=== PATIENT | female | born 1990 | race Caucasian/White ===

== ENCOUNTER 2020-01-28 05:30 | Outpatient (CLI) | payer OTHER ==
[~2020-01-28] VITALS: Ht 167.6 cm; Wt 118.2 kg
[2020-01-28 05:59] VITALS: BP 111/71
[2020-01-28] MEDS ORDERED: PREN1TAB60 PO (06:26)
== END 2020-01-28 06:52 | disposition home or self-care (01) ==
LOC: LDOP 05:30
PROVIDERS: ATTEND Obstetrics & Gynecology
DX: O26.893 Other specified pregnancy related conditions, third trimester (principal); R10.9 Unspecified abdominal pain; Z3A.39 39 weeks gestation of pregnancy
CPT/HCPCS: 59025

== ENCOUNTER 2020-02-01 21:44 | Inpatient (IN) | payer OTHER ==
[~2020-02-01] VITALS: Ht 167.6 cm; Wt 121.0 kg
[~2020-02-01 21:44] MED LIST: PREN1TAB60 PO
[2020-02-01] MEDS ORDERED: OXYTOCIN 30U/ 0.9% NaCL 500ML 500 ML ONE (22:06)
[2020-02-01] MEDS ORDERED: NEWBORN KIT ONE (22:06)
[2020-02-01] MEDS ORDERED: LACTATED RINGERS 1,000 ML IV SCH (22:10)
[2020-02-01] MEDS ORDERED: D5%-LACTATED RINGERS 1,000 ML IV SCH (22:10)
[2020-02-01] MEDS ORDERED: OXYTOCIN 30U/ 0.9% NaCL 500ML 500 ML IV ONE (22:10)
[2020-02-01] MEDS ORDERED: OXYTOCIN 30U/ 0.9% NaCL 500ML 500 ML IV PRN (22:10)
[2020-02-01] MEDS ORDERED: TERBUTALINE 1 MG/ML, 1ML SQ PRN (22:30)
[2020-02-01] MEDS ORDERED: ONDANSETRON 2MG/ML, 2ML IVPush PRN (22:30)
[2020-02-01] MEDS ORDERED: CALCIUM CARBONATE 500 MG TAB.CHEW PO PRN (22:30)
[2020-02-01] MEDS ORDERED: FENTANYL PF 100 MCG/2ML IVPush PRN (22:30)
[2020-02-01] MEDS ORDERED: TERBUTALINE 1 MG/ML, 1ML IVPush PRN (22:30)
[2020-02-01] MEDS ORDERED: FENTANYL PF 100 MCG/2ML IV PRN (22:30)
[2020-02-01] MEDS ORDERED: LIDOCAINE 1%, 20ML ONE (22:36)
[2020-02-01 22:45] LABS: BASOPHILS # (AUTO) 0.03 x10^3/uL (0-0.1); BASOPHILS % (AUTO) 0 % (0-1); EOSINOPHILS # (AUTO) 0.05 x10^3/uL (0-0.4); EOSINOPHILS % (AUTO) 1 % (1-7); LYMPHOCYTES # (AUTO) 2.22 x10^3/uL (1-3.4); LYMPHOCYTES % (AUTO) 22 % (22-44); MD NO; MEAN CORPUSCULAR HEMOGLOBIN 27.3 pg (27.0-34.8); MEAN CORPUSCULAR HGB CONC 32.2 g/dL (32.4-35.8); MEAN PLATELET VOLUME 8.3 fL (7.4-10.4); MONOCYTES # (AUTO) 0.64 x10^3/uL (0.2-0.8); MONOCYTES % (AUTO) 7 % (2-9); NEUTROPHILS # (AUTO) 6.93 x10^3/uL (1.8-6.8); NEUTROPHILS % (AUTO) 70 % (42-75); PLATELET COUNT 256 x10^3/uL (130-400); RED BLOOD COUNT 4.62 x10^6/uL (3.82-5.3); RED CELL DISTRIBUTION WIDTH 15.2 % (9.6-15.2)
[2020-02-01] MEDS ORDERED: FENTANYL PF 100 MCG/2ML ONE (23:13)
[2020-02-01] MEDS ORDERED: FENTANYL/BUPIV./NS/PF 250 ML EPIDCONT ONE (23:13)
[2020-02-02] MEDS ORDERED: LACTATED RINGERS 1,000 ML IV SCH (00:29)
[2020-02-02] MEDS ORDERED: FENTANYL/BUPIV./NS/PF 250 ML EPIDCONT SCH (00:29)
[2020-02-02] MEDS ORDERED: NALOXONE 0.4 MG/ML, 1ML IVPush PRN (00:30)
[2020-02-02] MEDS ORDERED: LACTATED RINGERS 1,000 ML IVBOLUS PRN (00:30)
[2020-02-02] MEDS ORDERED: EPHEDRINE 50 MG/ML, 1ML IVPush PRN (00:30)
[2020-02-02] MEDS ORDERED: ONDANSETRON 2MG/ML, 2ML ONE (01:34)
[2020-02-02] MEDS ORDERED: IBUPROFEN 600 MG TABLET ONE (06:44)
[2020-02-02] MEDS: IBUPROFEN 600 MG TABLET PO PRN ×3 (06:49→20:32)
[2020-02-02] MEDS ORDERED: METHYLERGONOVINE 0.2 MG/ML IM PRN (07:00)
[2020-02-02] MEDS ORDERED: SIMETHICONE 80 MG CHEW TAB PO PRN (07:00)
[2020-02-02] MEDS ORDERED: MISOPROSTOL 200 MCG TABLET SL PRN (07:00)
[2020-02-02] MEDS ORDERED: ACETAMINOPHEN 325 MG TABLET PO PRN (07:00)
[2020-02-02] MEDS ORDERED: DIPH,PERTUSS(ACELL),TET VAC/PF NC IM-VACC PRN (07:00)
[2020-02-02] MEDS ORDERED: CARBOPROST TROMETHAMINE 250 MCG/ML, 1ML IM PRN (07:00)
[2020-02-02] MEDS: OXYTOCIN 30U/ 0.9% NaCL 500ML 500 ML IV SCH ×2 (07:19→16:38)
[2020-02-02 08:40] VITALS: BP 110/71
[2020-02-02 13:10] VITALS: BP 128/87
[2020-02-02] MEDS: PRENATAL VIT/IRON/FA 1 EACH TABLET PO SCH (13:34)
[2020-02-02] MEDS: DOCUSATE 100 MG CAPSULE PO PRN ×2 (13:34→20:26)
[2020-02-02 16:34] LABS: BASOPHILS # (AUTO) 0.01 x10^3/uL (0-0.1); BASOPHILS % (AUTO) 0 % (0-1); EOSINOPHILS # (AUTO) 0.09 x10^3/uL (0-0.4); EOSINOPHILS % (AUTO) 1 % (1-7); LYMPHOCYTES # (AUTO) 1.48 x10^3/uL (1-3.4); LYMPHOCYTES % (AUTO) 13 % (22-44); MD NO; MEAN CORPUSCULAR HEMOGLOBIN 27.5 pg (27.0-34.8); MEAN CORPUSCULAR HGB CONC 32.7 g/dL (32.4-35.8); MEAN CORPUSCULAR VOLUME 84.1 fL (80-100); MEAN PLATELET VOLUME 8.1 fL (7.4-10.4); MONOCYTES # (AUTO) 0.55 x10^3/uL (0.2-0.8); MONOCYTES % (AUTO) 5 % (2-9); NEUTROPHILS % (AUTO) 81 % (42-75); PLATELET COUNT 212 x10^3/uL (130-400); RED BLOOD COUNT 4.15 x10^6/uL (3.82-5.3); RED CELL DISTRIBUTION WIDTH 15.5 % (9.6-15.2)
[2020-02-02 17:25] VITALS: BP 105/67
[2020-02-02] MEDS: OXYcodone/APAP 5/325MG TABLET PO PRN ×3 (17:36→21:35)
[2020-02-02 20:22] VITALS: BP 112/76
[2020-02-02] MEDS ORDERED: BUPIVACAINE 0.25% ONE (23:57)
[2020-02-02] MEDS ORDERED: LIDOCAINE/PF 1.5%-EPI 1:200K, 30ML ONE (23:57)
[2020-02-03 00:30] VITALS: BP 112/76
[2020-02-03] MEDS: OXYcodone/APAP 5/325MG TABLET PO PRN ×3 (01:23→13:53)
[2020-02-03] MEDS: OXYTOCIN 30U/ 0.9% NaCL 500ML 500 ML IV SCH ×2 (02:38→12:38)
[2020-02-03 04:00] VITALS: BP 128/72
[2020-02-03] MEDS: IBUPROFEN 600 MG TABLET PO PRN ×2 (04:21→10:30)
[2020-02-03] MEDS ORDERED: IBUP-1222 PO (07:25)
[2020-02-03 07:50] VITALS: BP 131/87
[2020-02-03] MEDS: DOCUSATE 100 MG CAPSULE PO PRN (10:30)
[2020-02-03] MEDS: PRENATAL VIT/IRON/FA 1 EACH TABLET PO SCH (10:30)
== END 2020-02-03 14:27 | disposition home or self-care (01) | DRG 807 ==
LOC: LDIP 21:44 → 2NW 02-02 08:29
PROVIDERS: ADMIT Obstetrics & Gynecology; ATTEND Obstetrics & Gynecology
PROC: 10E0XZZ Delivery of Products of Conception, External Approach (ICD-10-PCS; principal; 2020-02-02)
PROC: 3E0R3BZ Introduction of Anesthetic Agent into Spinal Canal, Percutaneous Approach (ICD-10-PCS; 2020-02-02)
PROC: 00HU33Z Insertion of Infusion Device into Spinal Canal, Percutaneous Approach (ICD-10-PCS; 2020-02-02)
DX: O69.81X0 Labor and delivery complicated by cord around neck, without compression, not applicable or unspecified (principal); Z37.0 Single live birth; Z3A.39 39 weeks gestation of pregnancy; Z03.818 Encounter for observation for suspected exposure to other biological agents ruled out
CPT/HCPCS: 36415; J3490; J7121; 85025; 86592; 86850; 86900; 87635; G0378; J2590; J3010; J7120